=== PATIENT | female | born 1960 | race African-American/Black ===

== ENCOUNTER 2018-01-02 03:59 | Emergency (ER) | payer BC ==
--- NOTE | 2018-01-02 04:51 | PDOC ---
History of Present Illness - General History Source: Patient Exam Limitations: No Limitations - History of Present Illness Initial Comments: 01/02/18 05:28 The patient is a 57 year old female with a significant PMH of asthma, diabetes, and GERD who presents to the emergency department with 2 weeks of productive cough with shortness of breath and 2 days of sore throat and nasal congestion. She also reports right ear pain beginning approximately 1 week ago. She reports going to Urgent Care last week and being given Amoxicillin, which she finished. She reports using her nebulizer to some relief. 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 The patient denies chest pain, headache and dizziness. Denies fever, chills, nausea, vomit, diarrhea and constipation. Denies dysuria, frequency, urgency and hematuria. Allergies: Prednisone Past surgical history: None reported Social history: No reported cigarette, alcohol, or drug use. PCP: Dr. Lala Zhu Cardiology: Dr. Oconnor <Ted Reed - Last Filed: 01/02/18 05:28> <Andree Goodwin - Last Filed: 01/02/18 06:11> - General Chief Complaint: Cold Symptoms Stated Complaint: COUGH Time Seen by Provider: 01/02/18 04:51 Past History <Ted Reed - Last Filed: 01/02/18 05:28> - Past Medical History Asthma: Yes Diabetes: Yes (niddm) GI Disorders: Yes (GERD) - Surgical History Cholecystectomy: No (GALLSTONES REMOVED 1989) - Immunization History Td Vaccination: Yes - Suicide/Smoking/Psychosocial Hx Smoking Status: No Smoking History: Never smoked Years of Tobacco Use: 0 Have you smoked in the past 12 months: No Number of Cigarettes Smoked Daily: 0 Cigars Per Day: 0 Information on smoking cessation initiated: No Hx Alcohol Use: No Drug/Substance Use Hx: No Substance Use Type: None <Andree Goodwin - Last Filed: 01/02/18 06:11> - Past Medical History Allergies/Adverse Reactions: Allergies Allergy/AdvReac Type Severity Reaction Status Date / Time prednisone AdvReac Verified 02/04/17 08:26 Home Medications: Ambulatory Orders Metformin HCl [Glucophage] 1,000 mg PO DAILY 12/05/12 Albuterol Sulfate Inhaler - [Ventolin HFA Inhaler -] 2 inh IH PRN 07/01/13 Fluticasone Propionate [Flovent Hfa] 220 mcg IH PRN 07/01/13 Albuterol 0.083% Nebulizer Nehal [Ventolin 0.083% Nebulizer Soln -] 1 neb NEB Q4H PRN #30 vial 11/22/15 Metformin HCl 500 mg PO HS 02/04/17 Amoxicillin/Potassium Clav [Augmentin 875-125 Tablet] 1 each PO BID #14 tablet 01/02/18 Review of Systems - Review of Systems Able to Perform ROS?: Yes Comments:: 01/02/18 05:28 GENERAL/CONSTITUTIONAL: No fever or chills. No weakness. HEAD, EYES, EARS, NOSE AND THROAT: (+) Nasal congestion. (+) Sore throat. No change in vision. No ear pain or discharge. CARDIOVASCULAR: (+) Shortness of breath. No chest pain. RESPIRATORY: (+) Cough. No wheezing or hemoptysis. GASTROINTESTINAL: No nausea, vomiting, diarrhea or constipation. GENITOURINARY: No dysuria, frequency, or change in urination. MUSCULOSKELETAL: No joint or muscle swelling or pain. No neck or back pain. SKIN: No rash NEUROLOGIC: No headache, vertigo, loss of consciousness, or change in strength/ sensation. ENDOCRINE: No increased thirst. No abnormal weight change. HEMATOLOGIC/LYMPHATIC: No anemia, easy bleeding, or history of blood clots. ALLERGIC/IMMUNOLOGIC: No hives or skin allergy. <Ted Reed - Last Filed: 01/02/18 05:28> *Physical Exam - Vital Signs Last Vital Signs Temp Pulse Resp BP Pulse Ox 99.2 F 85 18 134/66 100 01/02/18 04:12 01/02/18 04:12 01/02/18 04:12 01/02/18 04:12 01/02/18 04:12 <Ted Reed - Last Filed: 01/02/18 05:28> - Vital Signs Last Vital Signs Temp Pulse Resp BP Pulse Ox 99.2 F 85 18 134/66 100 01/02/18 04:12 01/02/18 04:12 01/02/18 04:12 01/02/18 04:12 01/02/18 04:12 <Andree Goodwin - Last Filed: 01/02/18 06:11> Medical Decision Making - Medical Decision Making 01/02/18 06:06 Pt presents to the ED complaining of generalized malaise, nasal congestion, bilateral ear pain and sinus pressure that have been persistent for two weeks. Seen at urgent care, treated one week ago for otitis with amoxicillin without resolution of her symptoms. Flu swab checked to rule out influenza and is negative. CXR negative for PNA. Symptoms are consistent with sinusitis. WIll discharge home with rx for augmentin. <Andree Goodwin - Last Filed: 01/02/18 06:11> *DC/Admit/Observation/Transfer - Attestations Scribe Attestion: 01/02/18 05:28 Documentation prepared by Ted Reed, acting as territory sales manager medical for Andree Goodwin MD. <Ted Reed - Last Filed: 01/02/18 05:28> - Discharge Dispostion Admit: No <Andree Goodwin - Last Filed: 01/02/18 06:11> Diagnosis at time of Disposition: Sinusitis Qualifiers: Sinusitis location: unspecified location Chronicity: acute Recurrence: non- recurrent Qualified Code(s): J01.90 - Acute sinusitis, unspecified - Discharge Dispostion Disposition: HOME Condition at time of disposition: Good - Prescriptions Prescriptions: Amoxicillin/Potassium Clav [Augmentin 875-125 Tablet] 1 each PO BID #14 tablet - Referrals Referrals: Lala Zhu MD [Primary Care Provider] - - Patient Instructions Printed Discharge Instructions: DI for Sinusitis Additional Instructions: return to the ED for severe chest pain or shortness of breath, severe headaches , persistent fever after three days of antibiotics, severe nausea and vomiting, unable to keep fluids down. Follow up with your doctor within three days. - Post Discharge Activity Forms/Work/School Notes: Back to Work
[2018-01-02 04:57] VITALS: BP 134/66; PULSE 85; TEMP 99.2; BMI 36.0
== END 2018-01-02 06:24 | disposition home or self-care (01) ==
LOC: JER 03:59
DX: J01.90 Acute sinusitis, unspecified (principal); J45.909 Unspecified asthma, uncomplicated; E11.9 Type 2 diabetes mellitus without complications; Z79.84 Long term (current) use of oral hypoglycemic drugs; K21.9 Gastro-esophageal reflux disease without esophagitis
CPT/HCPCS: 71046-TC-FY; 87804; 99281-25; 99282-25

== ENCOUNTER 2018-12-12 13:38 | Emergency (ER) | payer OTHER, BC ==
[2018-12-12 13:53] VITALS: BP 136/72; PULSE 64; TEMP 98.4; BMI 35.4
--- NOTE | 2018-12-12 14:30 | PDOC ---
History of Present Illness - General Chief Complaint: Injury Stated Complaint: Injury Time Seen by Provider: 12/12/18 14:30 History Source: Patient Exam Limitations: No Limitations - History of Present Illness Initial Comments: Pt is a 58 yo F, with PMH of asthma, DM, and GERD, who is presenting after a fall to her R hip while she was at work. 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 She did not hear any popping or clicking, but was unable to stand up on her own or ambulate after the fall, so EMS was called. She did not hit her head or have LOC. She does not complain of any midline spinal pain or neck pain. She did not have any numbness/ tingling or loss of stool/urine incontinence. Pt does not take PPI medications for reflux regularly. Pt denies any recent fevers/chills, headache, vision changes, syncope, chest pain, palpitations, SOB, nausea/vomiting, abdominal pain , urinary symptoms, diarrhea/constipation, or leg swelling. Social: Pt denies any cigarette, alcohol, or drug use. Pt denies any recent travel or sick contacts. Surgical: laser gallstone removal, no orthopedic surgeries. Family: no relevant history. 12/12/18 15:25 Past History - Travel Traveled outside of the country in the last 30 days: No Close contact w/someone who was outside of country & ill: No - Past Medical History Allergies/Adverse Reactions: Allergies Allergy/AdvReac Type Severity Reaction Status Date / Time prednisone AdvReac Verified 12/12/18 13:47 Home Medications: Ambulatory Orders metFORMIN HCL [Glucophage] 1,000 mg PO DAILY 12/05/12 Albuterol Sulfate Inhaler - [Ventolin HFA Inhaler -] 2 inh IH PRN 07/01/13 Fluticasone Propionate [Flovent Hfa] 220 mcg IH PRN 07/01/13 Albuterol 0.083% Nebulizer Nehal [Ventolin 0.083% Nebulizer Soln -] 1 neb NEB Q4H PRN #30 vial 11/22/15 metFORMIN HCL [Metformin HCl] 500 mg PO HS 02/04/17 Amoxicillin/Potassium Clav [Augmentin 875-125 Tablet] 1 each PO BID #14 tablet 02/06/18 Asthma: Yes COPD: No Diabetes: Yes (niddm) GI Disorders: Yes (GERD) - Surgical History Cholecystectomy: No (GALLSTONES REMOVED 1989) Orthopedic Surgery: No - Immunization History Td Vaccination: Yes - Suicide/Smoking/Psychosocial Hx Smoking Status: No Smoking History: Unknown if ever smoked Years of Tobacco Use: 0 Have you smoked in the past 12 months: No Number of Cigarettes Smoked Daily: 0 Cigars Per Day: 0 Hx Alcohol Use: No Drug/Substance Use Hx: No Substance Use Type: None Review of Systems - Review of Systems Able to Perform ROS?: Yes Is the patient limited [place]i proficient: No Constitutional: Yes: Weight Stable. No: Chills, Diaphoresis, Fever, Loss of Appetite, Weakness HEENTM: No: Blurred Vision, Double Vision, Nose Congestion, Throat Pain Respiratory: No: Cough, Orthopnea, Shortness of Breath Cardiac (ROS): No: Chest Pain, Edema, Irregular Heart Rate, Lightheadedness, Palpitations, Syncope, Chest Tightness ABD/GI: No: Constipated, Diarrhea, Nausea, Poor Appetite, Poor Fluid Intake, Vomiting, Abdominal cramping : No: Burning, Dysuria, Frequency, Hematuria, Pain, Urgency Musculoskeletal: Yes: See HPI, Joint Pain (pain over R hip and medial R knee; difficulty ambulating and bearing weight after fall.), Joint Swelling (swelling over R knee since fall). No: Back Pain, Muscle Pain, Muscle Weakness, Joint Stiffness Integumentary: No: Bruising, Erythema, Rash Neurological: No: Headache, Numbness, Paresthesia, Tingling, Weakness, Unsteady Gait, Ataxia, Dizziness Psychiatric: No: Sleep Pattern Change, Change in Appetite Endocrine: No: Increased Urine, Change in Weight Hematologic/Lymphatic: No: Anemia, Blood Clots, Easy Bleeding, Easy Bruising All Other Systems: Reviewed and Negative *Physical Exam - Vital Signs Last Vital Signs Temp Pulse Resp BP Pulse Ox 98.4 F 64 18 136/72 99 12/12/18 13:47 12/12/18 13:47 12/12/18 13:47 12/12/18 13:47 12/12/18 13:47 - Physical Exam General Appearance: Yes: Nourished, Appropriately Dressed, Obese. No: Apparent Distress HEENT: positive: EOMI, JANKI, Normal ENT Inspection, Normal Voice, Pharynx Normal , Hearing Grossly Normal. negative: Scleral Icterus (R), Scleral Icterus (L), Pharyngeal Erythema, Tonsillar Exudate, Tonsillar Erythema Neck: positive: Trachea midline, Normal Thyroid, Supple. negative: Tender, Rigid, Decreased range of motion, Lymphadenopathy (R), Lymphadenopathy (L), Rigidity Respiratory/Chest: positive: Lungs Clear, Normal Breath Sounds. negative: Chest Tender, Respiratory Distress, Accessory Muscle Use, Crackles, Wheezing Cardiovascular: positive: Regular Rhythm, Regular Rate, S1, S2. negative: Edema , JVD, Murmur Vascular Pulses: Carotid (R): 4+, Carotid (L): 4+, Dorsalis-Pedis (R): 4+, Doralis-Pedis (L): 4+ Gastrointestinal/Abdominal: positive: Normal Bowel Sounds, Soft, Protuberent. negative: Tender, Flat, Organomegaly, Pulsatile Mass, Distended, Guarding, Rebound Rectal Exam: positive: deferred Lymphatic: negative: Adenopathy, Tenderness Musculoskeletal: positive: Decreased Range of Motion (decreased flexion at R knee and R hip due to swelling and pain. ). negative: Normal Inspection, CVA Tenderness, Muscle Spasm, Vertebral Tenderness Extremity: positive: Normal Capillary Refill, Tender (tender over anterior aspect of R hip and R medial knee. Anterior and posterior drawer test WNL. Tenderness in R knee with varus stress. ), Swelling (R thigh and knee significantly swollen). negative: Normal Inspection, Normal Range of Motion Integumentary: positive: Normal Color, Dry, Warm. negative: Clammy, Diaphoresis , Rash, Ecchymosis Neurologic: positive: ancillary specialist II-XII NML intact, Fully Oriented, Alert, Normal Mood/ Affect, Normal Response, Motor Strength 5/5. negative: EOM Palsy, Facial Droop , Numbness, Sensory Deficit Moderate Sedation - Procedure Monitoring Vital Signs: Procedure Monitoring Vital Signs Temperature 98.4 F 12/12/18 13:47 Pulse Rate 64 12/12/18 13:47 Respiratory Rate 18 12/12/18 13:47 Blood Pressure 136/72 12/12/18 13:47 O2 Sat by Pulse Oximetry (%) 99 12/12/18 13:47 Medical Decision Making - Medical Decision Making Pt was seen at bedside, also will be seen by attending Dr. Jorge. Pt presenting after a fall to her R hip while she was at work. 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 She did not hear any popping or clicking, but was unable to stand up on her own or ambulate after the fall, so EMS was called. She did not hit her head or have LOC. She does not complain of any midline spinal pain or neck pain. She did not have any numbness/tingling or loss of stool/urine incontinence. Pt denies any recent fevers/chills, headache, vision changes, syncope, chest pain, palpitations, SOB , nausea/vomiting, abdominal pain, urinary symptoms, diarrhea/constipation, or leg swelling. PE showed significant edema over the R thigh and R knee. Tenderness to palpation over medial knee, and tenderness with varus stress. Pt able to flex and extend at the hip and knee. Intact anterior and posterior drawer test. No tenderness in posterior aspect of R knee, good distal pulses. Mild tenderness to palpation over the anterior R hip. No midline spinal tenderness, no neck tenderness, or rigidity. Pt able to bear weight and ambulate a few short steps, favoring L leg. Considering MSK contusions/sprains vs acute hip fracture vs patellar/tibial plateau fracture vs meniscal/ligamentous injury. Ordered work-up including R hip/pelvis and R knee/patellar (sunrise view) x- rays. Provided 650 mg PO tylenol for improvement of pain. Will continue to reassess pt and monitor for symptomatic improvement. 12/12/18 15:08 X-ray showed no acute fracture. Due to pain in the medial aspect of the knee, will place pt in knee immobilizer/ crutches and give follow-up for orthopedics. Advised pt to continue OTC pain control (tylenol, ibuprofen) and supportive measures at home. Pt advised to follow-up as well with PCP. Strict return precautions provided with pt understanding. 12/12/18 15:37 *DC/Admit/Observation/Transfer Diagnosis at time of Disposition: Right knee sprain Qualifiers: Encounter type: initial encounter Involved ligament of knee: unspecified ligament Qualified Code(s): S83.91XA - Sprain of unspecified site of right knee , initial encounter Sprain of right hip Qualifiers: Encounter type: initial encounter Qualified Code(s): S73.101A - Unspecified sprain of right hip, initial encounter Fall Qualifiers: Encounter type: initial encounter Qualified Code(s): W19.XXXA - Unspecified fall, initial encounter - Discharge Dispostion Disposition: HOME Condition at time of disposition: Good Decision to Admit order: No - Referrals Referrals: Lala Zhu MD [Primary Care Provider] - Anil Werner MD [Staff Physician] - - Patient Instructions Printed Discharge Instructions: DI for Knee Sprain Additional Instructions: You were seen in the ER today for a fall to your right hip and knee. The results of your labs and imaging today were normal. Please follow-up with your primary care doctor and orthopedics (Dr. Werner/Donnie) within 1-2 days to discuss your visit and make sure your symptoms have improved. Please return to the ER if you have any worsening pain, development of fevers or chills, loss of consciousness, inability to tolerate food or fluids, continued inability to bear weight, numbness or tingling in your extremities, or any other concerns. - Post Discharge Activity
[2018-12-12] MEDS ORDERED: ACETAMINOPHEN 325 MG TABLET (FP) PO ONE (14:50)
[2018-12-12] MEDS ORDERED: ACETAMINOPHEN 325 MG TABLET (FP) ONE (14:52)
--- NOTE | 2018-12-12 15:21 | PDOC ---
Attending Attestation - Resident Resident Name: Bailey Hurtado - ED Attending Attestation I have performed the following: I have examined & evaluated the patient, The case was reviewed & discussed with the resident, I agree w/resident's findings & plan, Exceptions are as noted - HPI HPI: 12/12/18 15:20 The patient is a 58 year old female with a significant PMH of asthma, diabetes, and GERD who presents to the emergency department s/p fall today. 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 Patient denies any head trauma. Denies LOC. Now complains of pain in her R hip and knee. Denies AVILES/neck pain. The patient denies chest pain, shortness of breath, headache and dizziness. Denies fever, chills, nausea, vomit, diarrhea and constipation. Denies dysuria, frequency, urgency and hematuria. Allergies: NKA Past surgical history: None reported. Social history: No reported alcohol, drug or cigarette use. PCP: Dr. Lala Zhu - Physicial Exam PE: 12/12/18 15:20 "GENERAL: Awake, alert, and fully oriented, in no acute distress. HEAD: No signs of trauma EYES: PERRLA, EOMI, sclera anicteric, conjunctiva clear ENT: Auricles normal inspection, hearing grossly normal, nares patent, oropharynx clear without exudates. Moist mucosa NECK: Nontender, no stepoffs, Normal ROM, supple, no lymphadenopathy, JVD, or masses LUNGS: Breath sounds equal, clear to auscultation bilaterally. No wheezes, and no crackles HEART: Regular rate and rhythm, normal S1 and S2, no murmurs, rubs or gallops ABDOMEN: Soft, nontender, normoactive bowel sounds. No guarding, no rebound. No masses EXTREMITIES: + R hip tenderness and R medial knee tenderness with effusion, ankle wnl, LLE wnl BACK: no midline tenderness, no stepoffs NEUROLOGICAL: Cranial nerves II through XII intact. 5/5 strength and sensation in all extremities, Normal speech, normal gait, normal cerebellar function SKIN: Warm, Dry, normal turgor, no rashes or lesions noted. - Medical Decision Making 12/12/18 15:21 58 F with R hip and knee pain s/p mechanical fall. Pt able to bear weight and ambulate in ED but has tenderness at medial jointline of R knee with joint effusion. WIll obtain XR to r/o fx but more likely ligamentous or meniscal injury. - XR R hip, R knee - Pain control 12/12/18 15:38 XRs negative on my read Pt placed in knee immobilizer, given crutches Will f/u with ortho as outpt Pt is well appearing, with normal vitals. Clinically stable for DC at this time. I discussed the physical exam findings, ancillary test results and final diagnoses with the patient. I answered all of the patient's questions. The patient was satisfied with the care received and felt comfortable with the discharge plan and treatment plan. The patient agrees to follow up with the primary care physician within 24-72 hours.
== END 2018-12-12 15:54 | disposition home or self-care (01) ==
LOC: JER 13:38
DX: S73.101A Unspecified sprain of right hip, initial encounter (principal); S83.91XA Sprain of unspecified site of right knee, initial encounter; W01.0XXA Fall on same level from slipping, tripping and stumbling without subsequent striking against object, initial encounter; Y93.89 Activity, other specified; Y92.511 Restaurant or cafe as the place of occurrence of the external cause; Y99.0 Civilian activity done for income or pay; K21.9 Gastro-esophageal reflux disease without esophagitis; J45.909 Unspecified asthma, uncomplicated; E11.9 Type 2 diabetes mellitus without complications
CPT/HCPCS: 73523-TC-FY; 73562-TC-RT-FY; 99281-25

== ENCOUNTER 2019-01-05 16:50 | Emergency (ER) | payer OTHER ==
[2019-01-05 17:16] VITALS: BP 122/60; PULSE 80; TEMP 98.8; BMI 37.2
--- NOTE | 2019-01-05 18:29 | PDOC ---
History of Present Illness - General Chief Complaint: Respiratory Stated Complaint: SENT BY PCP - History of Present Illness Initial Comments: The pt is a 58F w/ a PMH of asthma, T2DM, and GERD who presents for evaluation of 1wk midsternal chest pressure, worse w/ laying down, and not alleviated by anything she can identify. She reports associated worsening exertional dyspnea. She She also describes 1 wk of separtate L-sided sharp chest pain w/ radiation to L arm that is non-exertional and intermittent. Additionally, reports a dry cough for 1 day not helped by ventolin. She was seen at an urgent care prior to being seen here. She had an ECG done there which was significant for a RBBB and was sent here for further evaluation. There she was given 325mg ASA. Of note, she recently was started on Losartan Denies fevers/chills, AVILES, Vision changes, abdominal pain, N/V/C/D. Denies hx of PA or stroke or stent PCP: Dr. Lala Lobo 01/05/19 18:31 Past History - Past Medical History Allergies/Adverse Reactions: Allergies Allergy/AdvReac Type Severity Reaction Status Date / Time prednisone AdvReac Verified 01/05/19 17:16 Home Medications: Ambulatory Orders metFORMIN HCL [Glucophage] 1,000 mg PO DAILY 12/05/12 Albuterol Sulfate Inhaler - [Ventolin HFA Inhaler -] 2 inh IH PRN 07/01/13 Fluticasone Propionate [Flovent Hfa] 220 mcg IH PRN 07/01/13 Albuterol 0.083% Nebulizer Nehal [Ventolin 0.083% Nebulizer Soln -] 1 neb NEB Q4H PRN #30 vial 11/22/15 metFORMIN HCL [Metformin HCl] 500 mg PO HS 02/04/17 Amoxicillin/Potassium Clav [Augmentin 875-125 Tablet] 1 each PO BID #14 tablet 01/02/18 Asthma: Yes COPD: No Diabetes: Yes (niddm) GI Disorders: Yes (GERD) - Surgical History Cholecystectomy: No (GALLSTONES REMOVED 1989) Orthopedic Surgery: No - Immunization History Td Vaccination: Yes - Suicide/Smoking/Psychosocial Hx Smoking Status: No Smoking History: Never smoked Years of Tobacco Use: 0 Have you smoked in the past 12 months: No Number of Cigarettes Smoked Daily: 0 Cigars Per Day: 0 Hx Alcohol Use: No Drug/Substance Use Hx: No Substance Use Type: None Review of Systems - Review of Systems Able to Perform ROS?: Yes Comments:: GENERAL/CONSTITUTIONAL: No fever or chills. No weakness HEAD, EYES, EARS, NOSE AND THROAT: No change in vision. No ear pain or discharge. No sore throat CARDIOVASCULAR: per HPI RESPIRATORY: Denies hemoptysis GASTROINTESTINAL: No nausea, vomiting, diarrhea or constipation GENITOURINARY: No dysuria, frequency, or change in urination MUSCULOSKELETAL: No joint or muscle swelling or pain. No neck or back pain SKIN: No rash NEUROLOGIC: No headache, vertigo, loss of consciousness, or change in strength/ sensation ENDOCRINE: No increased thirst. No abnormal weight change HEMATOLOGIC/LYMPHATIC: No anemia, easy bleeding, or history of blood clots ALLERGIC/IMMUNOLOGIC: No hives or skin allergy 01/05/19 18:29 Is the patient limited Albanian proficient: No *Physical Exam - Vital Signs Last Vital Signs Temp Pulse Resp BP Pulse Ox 98.8 F 80 18 122/60 97 01/05/19 17:11 01/05/19 17:11 01/05/19 17:11 01/05/19 17:11 01/05/19 17:11 - Physical Exam Comments: GENERAL: Awake, alert, and fully oriented, in no acute distress HEAD: No signs of trauma, normocephalic, atraumatic EYES: PERRLA, EOMI, sclera anicteric, conjunctiva clear ENT: Hearing grossly normal, nares patent, oropharynx clear without exudates. Moist mucosa LUNGS: No distress, speaks full sentences, mild expiratory wheezes b/l diffusely HEART: Regular rate and rhythm, normal S1 and S2, no murmurs appreciated, peripheral pulses normal and equal bilaterally ABDOMEN: Soft, nontender, normoactive bowel sounds. No guarding, no rebound EXTREMITIES : Normal inspection, Normal range of motion, no edema. No clubbing or cyanosis NEUROLOGICAL: Cranial nerves II through XII grossly intact. Normal speech, normal gait, no focal sensorimotor deficits SKIN: Warm, Dry 01/05/19 18:29 Moderate Sedation - Procedure Monitoring Vital Signs: Procedure Monitoring Vital Signs Temperature 98.8 F 01/05/19 17:11 Pulse Rate 80 01/05/19 17:11 Respiratory Rate 18 01/05/19 17:11 Blood Pressure 122/60 01/05/19 17:11 O2 Sat by Pulse Oximetry (%) 97 01/05/19 17:11 Heart Score/ECG Review - History History: Slightly suspicious - Electrocardiogram EKG: Non specific repolarization disturbance - Age Age: 45-65 - Risk Factors Risk Factors Heart Score: Yes Hx Hypertension, Yes Hx Diabetes Based on the list above the patient has:: 1-2 risk factors - Troponin Troponin: </= normal limit - Score Heart Score - Total: 3 ED Treatment Course - LABORATORY CBC & Chemistry Diagram: 01/05/19 18:50 01/05/19 18:50 Medical Decision Making - Medical Decision Making The pt is a 58F w/ a history of asthma, HTN, and GERD who presents for evaluation of 1wk of chest pain and a few days of non-productive cough not alleviated by her inhaler Ddx: asthma exacerbation, PNA, viral syndrome, consider ACS (HEART score 3 given co-morbidities) ED Course CMP, CBC, Cardiac enzymes ECG CXR Nebs x1 01/05/19 18:47 ECG w/ NSR w/ 1 PVC, HR 78, QTc 437, RBBB No leukocytosis No anemia CXR w/o evidence of PNA, PNX, or effusion 01/05/19 19:06 Trop I neg Lytes wnl No CARY LFTs wnl 01/05/19 19:30 Patient now describes chest sensation as 'fluttering' Patient w/ improved wheezing s/p nebs Patient reports she feels moderately improved Plan for D/C w/ PCP f/u Discharge instructions and return precautions given Patient in agreement and verbalized understanding Dispo: home 01/05/19 19:44 *DC/Admit/Observation/Transfer Diagnosis at time of Disposition: Cough Chest pain Qualifiers: Chest pain type: unspecified Qualified Code(s): R07.9 - Chest pain, unspecified - Discharge Dispostion Disposition: HOME Condition at time of disposition: Good Decision to Admit order: No - Referrals - Patient Instructions Printed Discharge Instructions: DI for Viral Syndrome Additional Instructions: You were seen in the Emergency Department today for cough and chest congestion. Review the handout provided at discharge. Follow up with your primary care provider within the next 3-5 days. Return to the Emergency Department if you develop fevers/chills, worsening or different chest discomfort, trouble breathing, or any new/concerning symptoms. For you symptoms, you may take guaifenesin and dextromethorphan (commonly found in Mucinex) - Post Discharge Activity
[2019-01-05] MEDS ORDERED: ALBUTEROL SO4 2.5/IPRATROPIUM 0.5 INH SOL 3 ML VIAL.NEB. NEB ONE ×2 (18:50→19:06)
[2019-01-05 18:57] LABS: HEMATOCRIT 38.8 % (32.4-45.2); HEMOGLOBIN 13.1 GM/dL (10.7-15.3); MCH 27.8 pg (25.7-33.7); MCHC 33.7 g/dl (32.0-36.0); MEAN CELL VOLUME 82.3 fl (80-96); MEAN PLT VOLUME 8.5 fl (7.5-11.1); PLATELET COUNT 241 K/MM3 (134-434); RBC 4.71 M/mm3 (3.60-5.2); RDW 16.8 % (11.6-15.6)
--- NOTE | 2019-01-05 19:25 | PDOC ---
Attending Attestation - Resident Resident Name: Andry Sibley - ED Attending Attestation I have performed the following: I have examined & evaluated the patient, The case was reviewed & discussed with the resident, I agree w/resident's findings & plan, Exceptions are as noted - HPI HPI: 01/05/19 20:03 The patient is a 58 year old female, with a significant PMH of asthma, NIDDM, GERD, HTN, and HLN who presents to the emergency department with a cough productive of clear sputum for 1 day after visiting urgent care today. The patient reports an intermittent chest fluttering for 1 week, that is worse when supine, with each episode lasting a couple seconds, improves when she tries to clera her throat. The patient reports an associated sore throat. 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 The patient denies any chest pain and chest pressure, n/v, diaphoresis, f/c, leg slweling, hemoptysis. The patient denies headache and dizziness. Denies fever, chills, nausea, vomit, diarrhea and constipation. Denies dysuria, frequency, urgency and hematuria. Allergies: prednisone PCP: Dr. 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 HEAD: Normocephalic, atraumatic. EYES: extraocular movements intact, sclera anicteric, conjunctiva clear. ENT: Normal voice, Moist mucous membranes. NECK: Normal range of motion, supple LUNGS: Breath sounds equal, clear to auscultation bilaterally. No wheezes, no rhonchi, no rales. HEART: Regular rate and rhythm, normal S1 and S2 without murmur, rub or gallop. ABDOMEN: Soft, nontender, No guarding, no rebound. . No CVA tenderness EXTREMITIES: Normal range of motion, no edema. . NEUROLOGICAL: No facial assymetry, Normal speech, PSYCH: Normal mood, normal affect. SKIN: Warm, Dry, normal turgor, - Medical Decision Making 01/05/19 19:13 58y F hx of NIDDM, htn, hl, sent to the ED by Urgent care for abnormal EKG, pt endorses midsternal chest 'fluttering' that lasts for several seconds at a time before resolving, it also seems to resolve when she tries to clear her throat. The pt endorses a sore throat miles tstarted today, a cough intermittently productive of whitish sputum since eysterday. denies any chest pain, chest pressure, fever/chills, leg swelling, hemoptysis, back pain, abd pain, diaphoresis, nasal congestion. pt notes she feels mild sob when she is ambulating. she has been using her ventolin with mild releive. 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
[2019-01-05 19:27] LABS: ALBUMIN 3.8 g/dl (3.4-5.0); ALK PHOS 87 U/L (45-117); ANION GAP 7 MMOL/L (8-16); BILIRUBIN,TOTAL 0.4 mg/dL (0.2-1); BLOOD UREA NITROGEN 8 mg/dL (7-18); CALCIUM 8.3 mg/dL (8.5-10.1); CHLORIDE 108 mmol/L (98-107); CO2 26 mmol/L (21-32); CREATININE 0.6 mg/dL (0.55-1.3); GLUCOSE,RANDOM 111 mg/dL (74-106); POTASSIUM 3.7 mmol/L (3.5-5.1); SGOT/AST 15 U/L (15-37); SGPT/ALT 21 U/L (13-61); SODIUM 140 mmol/L (136-145); TOT PROT 6.8 g/dl (6.4-8.2)
--- NOTE | 2019-01-06 13:00 | EKG ---
Test Reason : Blood Pressure : / mmHG Vent. Rate : 078 BPM Atrial Rate : 078 BPM P-R Int : 150 ms QRS Dur : 130 ms QT Int : 384 ms P-R-T Axes : 071 -30 029 degrees QTc Int : 437 ms SINUS RHYTHM WITH OCCASIONAL PREMATURE VENTRICULAR COMPLEXES LEFT AXIS DEVIATION RIGHT BUNDLE BRANCH BLOCK ABNORMAL ECG WHEN COMPARED WITH ECG OF 26-SEP-2016 17:28, PREMATURE VENTRICULAR COMPLEXES ARE NOW PRESENT Confirmed by John Paul Leos MD ([id number]) on 01/06/2019 1:00:00 PM Referred By: Confirmed By:John Paul Leos MD
== END 2019-01-05 20:18 | disposition home or self-care (01) ==
LOC: JER 16:50
PROC: 3E0F7GC Introduction of Other Therapeutic Substance into Respiratory Tract, Via Natural or Artificial Opening (ICD-10-PCS; principal; 2019-01-05)
DX: R07.9 Chest pain, unspecified (principal); J45.909 Unspecified asthma, uncomplicated; I10 Essential (primary) hypertension; K21.9 Gastro-esophageal reflux disease without esophagitis
CPT/HCPCS: 36415; 71045-TC-FY; 80053; 82550; 84484; 85027; 93005; 93010; 99282-25

== ENCOUNTER 2019-01-20 08:33 | Emergency (ER) | payer BC, OTHER ==
[2019-01-20 08:41] VITALS: BP 115/59; PULSE 68; TEMP 98; BMI 37.2
--- NOTE | 2019-01-20 09:24 | PDOC ---
History of Present Illness - General Chief Complaint: Respiratory Stated Complaint: CONGESTION / COUGHING Time Seen by Provider: 01/20/19 08:48 History Source: Patient Exam Limitations: Clinical Condition - History of Present Illness Initial Comments: 01/20/19 09:28 Patient with history of diabetes present with complaint of over 2 weeks history of cough and burning sensation with irregular heartbeat which comes on at night where she is sleeping. Patient reports she was seen in the ED here 2 weeks ago for same symptoms and all workup was negative including EKG and cardiac labs. Patient reports she was seen by PCP few days ago for symptoms and had Holter monitor done but hasn't received the results yet by patient's symptoms could be caused by acid reflex as she has been having a lot of burping and burning the chest especially at night why she sleeping. Patient denies any chest pain now, shortness of breath, dizziness, sweats, nausea or vomiting. Patient denies any other symptoms Timing/Duration: other (2 weeks) Past History - Past Medical History Allergies/Adverse Reactions: Allergies Allergy/AdvReac Type Severity Reaction Status Date / Time prednisone AdvReac Verified 01/20/19 08:40 Home Medications: Ambulatory Orders metFORMIN HCL [Glucophage] 1,000 mg PO DAILY 12/05/12 Albuterol Sulfate Inhaler - [Ventolin HFA Inhaler -] 2 inh IH PRN 07/01/13 Fluticasone Propionate [Flovent Hfa] 220 mcg IH PRN 07/01/13 Albuterol 0.083% Nebulizer Nehal [Ventolin 0.083% Nebulizer Soln -] 1 neb NEB Q4H PRN #30 vial 11/22/15 metFORMIN HCL [Metformin HCl] 500 mg PO HS 02/04/17 Amoxicillin/Potassium Clav [Augmentin 875-125 Tablet] 1 each PO BID #14 tablet 01/02/18 Benzonatate [Tessalon Pearls -] 100 mg PO TID PRN #21 capsule 01/20/19 Pantoprazole Sodium [Protonix] 40 mg PO DAILY #30 tablet. 01/20/19 Asthma: Yes COPD: No Diabetes: Yes GI Disorders: Yes (GERD) HTN: Yes - Surgical History Cholecystectomy: No (GALLSTONES REMOVED 1989) Orthopedic Surgery: No - Immunization History Td Vaccination: Yes - Suicide/Smoking/Psychosocial Hx Smoking Status: No Smoking History: Never smoked Years of Tobacco Use: 0 Have you smoked in the past 12 months: No Number of Cigarettes Smoked Daily: 0 Cigars Per Day: 0 Hx Alcohol Use: No Drug/Substance Use Hx: No Substance Use Type: None Review of Systems - Review of Systems Able to Perform ROS?: Yes Is the patient limited Latvian proficient: No Constitutional: No: Symptoms Reported, See HPI, Chills, Diaphoresis, Fever, Loss of Appetite, Malaise, Night Sweats, Weakness, Weight Stable, Unintentional Wgt. Loss, Unexplained wgt Loss, Other HEENTM: No: Symptoms Reported, See HPI, Eye Pain, Blurred Vision, Tearing, Recent change in vision, Double Vision, Cataracts, Ear Pain, Ocular Prothesis, Ear Discharge, Nose Pain, Nose Congestion, Tinnitus, Nose Bleeding, Hearing Loss , Throat Pain, Throat Swelling, Mouth Pain, Dental Problems, Difficulty Swallowing, Mouth Swelling, Other Respiratory: Yes: Symptoms reported, See HPI, Cough. No: Orthopnea, Shortness of Breath, SOB with Exertion, SOB at Rest, Stridor, Wheezing, Productive cough, Hemoptysis, Other Cardiac (ROS): Yes: Symptoms Reported, See HPI, Irregular Heart Rate. No: Chest Pain, Edema, Lightheadedness, Palpitations, Syncope, Chest Tightness, Other ABD/GI: No: Symptoms Reported, See HPI, Abdominal Distended, Abd. Pain w/ defecation, Blood Streaked Bowels, Constipated, Diarrhea, Difficulty Swallowing , Nausea, Poor Appetite, Poor Fluid Intake, Rectal Bleeding, Vomiting, Indigestion, Abdominal cramping, Tarry Stools, Other Neurological: No: Headache, Numbness, Paresthesia, Tingling, Dizziness All Other Systems: Reviewed and Negative *Physical Exam - Vital Signs Last Vital Signs Temp Pulse Resp BP Pulse Ox 98.0 F 68 18 115/59 L 98 01/20/19 08:37 01/20/19 08:37 01/20/19 08:37 01/20/19 08:37 01/20/19 08:37 - Physical Exam Comments: 01/20/19 09:30 GENERAL: [The patient is awake, alert, and fully oriented, in no acute distress. ] HEAD: [Normal with no signs of trauma.] EYES: [Pupils equal, round and reactive to light, extraocular movements intact, sclera anicteric, conjunctiva clear.] ENT: [Ears normal, nares patent, oropharynx clear without exudates. Moist mucous membranes.] NECK: [Normal range of motion, supple without lymphadenopathy, JVD, or masses.] LUNGS: [Breath sounds equal, clear to auscultation bilaterally. No wheezes, and no crackles.] HEART: [Regular rate and rhythm, normal S1 and S2 without murmur, rub or gallop. ] ABDOMEN: [Soft, nontender, normoactive bowel sounds. No guarding, no rebound. No masses.] EXTREMITIES: [Normal range of motion, no edema. No clubbing or cyanosis. No cords, erythema, or tenderness.] NEUROLOGICAL: [Cranial nerves II through XII grossly intact. Normal speech, normal gait.] PSYCH: [Normal mood, normal affect.] SKIN: [Warm, Dry, normal turgor, no rashes or lesions noted.] General Appearance: Yes: Nourished, Appropriately Dressed. No: Apparent Distress Moderate Sedation - Procedure Monitoring Vital Signs: Procedure Monitoring Vital Signs Temperature 98.0 F 01/20/19 08:37 Pulse Rate 68 01/20/19 08:37 Respiratory Rate 18 01/20/19 08:37 Blood Pressure 115/59 L 01/20/19 08:37 O2 Sat by Pulse Oximetry (%) 98 01/20/19 08:37 Medical Decision Making - Medical Decision Making 01/20/19 09:31 Patient present with complaint of 2 weeks history of cough, burping and burning sensation chest. Patient previously was seen for symptoms and all workup was negative. Patient be follow-up with primary care and had Holter monitor done in the waiting results. Clinical exam unremarkable with normal cardio and lung exam. Symptoms likely GERD causing cough. Patient is stable for discharge on Tessalon Perles for cough and Protonix for GERD with PCP and cardiology follow-up. Referral given for cardiology follow-up. *DC/Admit/Observation/Transfer Diagnosis at time of Disposition: Atypical chest pain, Cough GERD (gastroesophageal reflux disease) Qualifiers: Esophagitis presence: without esophagitis Qualified Code(s): K21.9 - Gastro- esophageal reflux disease without esophagitis - Discharge Dispostion Disposition: HOME Condition at time of disposition: Stable Decision to Admit order: No - Prescriptions Prescriptions: Benzonatate [Tessalon Pearls -] 100 mg PO TID PRN #21 capsule PRN Reason: Cough Pantoprazole Sodium [Protonix] 40 mg PO DAILY #30 tablet.dr - Referrals Referrals: Lala Zhu MD [Primary Care Provider] - Fadi Pulido MD [Staff Physician] - - Patient Instructions Printed Discharge Instructions: DI for Gastroesophageal Reflux Disease (GERD) Additional Instructions: Take medications as prescribed for cough and heartburn. Follow-up referred cardiology Dr. Pulido for irregular heartbeat. - Post Discharge Activity
== END 2019-01-20 09:27 | disposition home or self-care (01) ==
LOC: JERFT 08:33
DX: K21.9 Gastro-esophageal reflux disease without esophagitis (principal); R07.9 Chest pain, unspecified; I10 Essential (primary) hypertension; E11.9 Type 2 diabetes mellitus without complications; Z79.84 Long term (current) use of oral hypoglycemic drugs; J45.909 Unspecified asthma, uncomplicated
CPT/HCPCS: 99281-25

== ENCOUNTER 2019-12-20 18:13 | Emergency (ER) | payer OTHER, BC ==
[2019-12-20 18:48] VITALS: BP 141/70; PULSE 83; TEMP 98.3; BMI 41.0
[2019-12-20] MEDS ORDERED: CYCLOBENZAPRINE HCL 10 MG TABLET (FP) PO ONE (18:50)
[2019-12-20] MEDS ORDERED: KETOROLAC TROMETHAMINE 60 MG/2 ML VIAL IM ONE (18:50)
--- NOTE | 2019-12-20 18:51 | PDOC ---
Rapid Medical Evaluation Chief Complaint: Headache Medical Evaluation: Allergies Allergy/AdvReac Type Severity Reaction Status Date / Time prednisone AdvReac Verified 12/20/19 18:44 Vital Signs Temp Pulse Resp BP Pulse Ox 98.3 F 83 16 141/70 99 12/20/19 18:45 12/20/19 18:45 12/20/19 18:45 12/20/19 18:45 12/20/19 18:45 12/20/19 18:51 Pt c/o: hit by big ball 1 week ago and jerked herself when she was hit, still with pain to left side of head with ear and decreased rom of neck with neck pain , no nausea or visual changes Pt on brief exam: vss, perrl, left trap strain, cervical tenderness at c5 Pt ordered for: cervical xray, flexeril and toradol pt to proceed to the ED Discharge Disposition - Diagnosis Trapezius strain - Referrals - Patient Instructions - Post Discharge Activity
[2019-12-20] MEDS ORDERED: KETOROLAC TROMETHAMINE 60 MG/2 ML VIAL ONE (21:18)
[2019-12-20] MEDS ORDERED: CYCLOBENZAPRINE HCL 10 MG TABLET (FP) ONE (21:18)
--- NOTE | 2019-12-20 22:06 | PDOC ---
History of Present Illness - General Chief Complaint: Headache Stated Complaint: HEADACHE Time Seen by Provider: 12/20/19 18:51 History Source: Patient Exam Limitations: No Limitations - History of Present Illness Initial Comments: 12/20/19 22:02 HISTORY OF PRESENT ILLNESS: 59-year-old woman who presents emergency department for evaluation of left neck and shoulder pain status post being struck in the side of the head with a playground ball on 12/09. Patient has been seen and evaluated by urgent care multiple times as this is an ongoing workers comp issue. Patient believes she was getting substandard care at the previous provider and wanted reevaluation of her neck pain. She denies any numbness or tingling to her upper extremities, weakness, decreased range of motion. No recent travel or sick contacts. PAST MEDICAL HISTORY: Denies past medical history SURGICAL HISTORY: Denies ALLERGIES: Prednisone REVIEW OF SYSTEMS General/Constitutional: Denies fever or chills. Denies weakness, weight change. HEENT: Denies change in vision. Denies ear pain or discharge. Denies sore throat. Cardiovascular: Denies chest pain or shortness of breath. Respiratory: Denies cough, wheezing, or hemoptysis. Gastrointestinal: Denies nausea, vomiting, diarrhea or constipation. Denies rectal bleeding. Genitourinary: Denies dysuria, frequency, or change in urination. Musculoskeletal: See HPI Skin and breasts: Denies rash or easy bruising. Neurologic: Denies headache, vertigo, loss of consciousness, or loss of sensation. Psychiatric: Denies depression or anxiety. Endocrine: Denies increased thirst. Denies abnormal weight change. Hematologic/Lymphatic: Denies anemia, easy bleeding, or history of blood clots. Allergic/Immunologic: Denies hives or skin allergy. Denies latex allergy. PHYSICAL EXAM General Appearance: Well-appearing, appropriately dressed. No apparent distress , no intoxication. HEENT: EOMI, PERRLA, normal ENT inspection, normal voice, TMs normal, pharynx normal. No conjunctival pallor. No photophobia, scleral icterus. Neck: Supple. Trachea midline. No tenderness, rigidity, carotid bruit, stridor , lymphadenopathy, or thyromegaly. No midline tenderness. Full range of motion of the cervical spine including flexion, extension and rotation. No lateral tenderness present. Respiratory/Chest: Lungs CTAB. No shortness of breath, chest tenderness, respiratory distress, accessory muscle use. No crackles, rales, rhonchi, stridor , wheezing, dullness Cardiovascular: RRR. S1, S2. No JVD, murmur, bradycardia, tachycardia. Vascular Pulses: Dorsalis-Pedis (R): 2+, Dorsalis-Pedis (L): 2+ Musculoskeletal/Extremities: Normal inspection. FROM of all extremities, normal capillary refill. Pelvis Stable. No CVA tenderness. No tenderness to extremities, pedal edema, swelling, erythema or deformity. 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 Fully oriented, alert. Appropriate mood/affect. Motor strength 5/5. No appreciable EOM palsy, facial droop or sensory deficit. Past History - Past Medical History Allergies/Adverse Reactions: Allergies Allergy/AdvReac Type Severity Reaction Status Date / Time prednisone AdvReac Verified 12/20/19 18:44 Home Medications: Ambulatory Orders metFORMIN HCL [Glucophage] 1,000 mg PO DAILY 12/05/12 Albuterol Sulfate Inhaler - [Ventolin HFA Inhaler -] 2 inh IH PRN 07/01/13 Fluticasone Propionate [Flovent Hfa] 220 mcg IH PRN 07/01/13 Albuterol 0.083% Nebulizer Nehal [Ventolin 0.083% Nebulizer Soln -] 1 neb NEB Q4H PRN #30 vial 11/22/15 metFORMIN HCL [Metformin HCl] 500 mg PO HS 02/04/17 Amoxicillin/Potassium Clav [Augmentin 875-125 Tablet] 1 each PO BID #14 tablet 01/02/18 Benzonatate [Tessalon Pearls -] 100 mg PO TID PRN #21 capsule 01/20/19 Pantoprazole Sodium [Protonix] 40 mg PO DAILY #30 tablet. 01/20/19 Methocarbamol [Robaxin -] 1,000 mg PO TID PRN #42 tablet 12/20/19 Asthma: Yes COPD: No Diabetes: Yes GI Disorders: Yes (GERD) HTN: Yes - Surgical History Cholecystectomy: No (GALLSTONES REMOVED 1989) Orthopedic Surgery: No - Immunization History Td Vaccination: Yes - Psycho Social/Smoking Cessation Hx Smoking Status: No Smoking History: Never smoked Years of Tobacco Use: 0 Have you smoked in the past 12 months: No Number of Cigarettes Smoked Daily: 0 Cigars Per Day: 0 Hx Alcohol Use: No Drug/Substance Use Hx: No Substance Use Type: None *Physical Exam - Vital Signs Last Vital Signs Temp Pulse Resp BP Pulse Ox 98.3 F 83 16 141/70 99 12/20/19 18:45 12/20/19 18:45 12/20/19 18:45 12/20/19 18:45 12/20/19 18:45 ED Treatment Course - Medications Given in the ED: ED Medications Discontinued Medications Generic Name Dose Route Start Last Admin Trade Name Freq PRN Reason Stop Dose Admin Cyclobenzaprine HCl 5 mg 12/20/19 18:50 12/20/19 21:27 Flexeril - PO 12/20/19 18:51 5 mg ONCE ONE Administration Ketorolac Tromethamine 60 mg 12/20/19 18:50 12/20/19 21:27 Toradol Injection - IM 12/20/19 18:51 60 mg ONCE ONE Administration Medical Decision Making - Medical Decision Making 12/20/19 22:01 A/P: 59-year-old woman for reevaluation of upper back pain after being struck in the head with a playground ball on 12/09 X-rays of the cervical spine is read by me: No malalignment is present. No acute fractures are noted. Patient reports improvement in her pain after receiving Flexeril from [facility]. Discharge home with prescription for Robaxin and instructions to follow-up with her Worker's Comp. physician for continued evaluation and treatment. I discussed the physical exam findings, ancillary test results and final diagnoses with the patient. I answered all of the patient's questions. The patient was satisfied with the care received and felt comfortable with the discharge plan and treatment plan. The patient will call their primary care physician within 24 hours to arrange follow-up and will return to the Emergency Department with any new, persistent or worsening symptoms. Discharge - Discharge Information Problems reviewed: Yes Clinical Impression/Diagnosis: Trapezius strain Qualifiers: Encounter type: initial encounter Laterality: left Qualified Code(s): S46.812A - Strain of other muscles, fascia and tendons at shoulder and upper arm level, left arm, initial encounter Condition: Stable Disposition: HOME - Admission No - Additional Discharge Information Prescriptions: Methocarbamol [Robaxin -] 1,000 mg PO TID PRN #42 tablet PRN Reason: Back Pain - Follow up/Referral Referrals: Lala Zhu MD [Primary Care Provider] - - Patient Discharge Instructions Additional Instructions: Rest, no heavy lifting or exercise until pain is resolved Hot soaks to neck and low back as often as possible/hot showers or Jacuzzis No massage or therapy until spasm is gone Continue naproxen 2-220 mg tablets every 12 hours for the next 3 days then as needed for pain and swelling Robaxin 1000mg every 8 hours as needed for spasm If not significant improvement within 24 hours with medication and rest regime, followup with private physician for change in medications and /or therapy. - Post Discharge Activity
== END 2019-12-20 22:04 | disposition home or self-care (01) ==
LOC: JERFT 18:13
PROC: 3E0233Z Introduction of Anti-inflammatory into Muscle, Percutaneous Approach (ICD-10-PCS; principal; 2019-12-20)
DX: S46.812A Strain of other muscles, fascia and tendons at shoulder and upper arm level, left arm, initial encounter (principal); W21.09XA Struck by other hit or thrown ball, initial encounter; Y93.89 Activity, other specified; Y92.838 Other recreation area as the place of occurrence of the external cause; Y92.218 Other school as the place of occurrence of the external cause; Y99.0 Civilian activity done for income or pay; Z88.8 Allergy status to other drugs, medicaments and biological substances; I10 Essential (primary) hypertension; E11.9 Type 2 diabetes mellitus without complications; Z79.84 Long term (current) use of oral hypoglycemic drugs; K21.9 Gastro-esophageal reflux disease without esophagitis; J45.909 Unspecified asthma, uncomplicated
CPT/HCPCS: 72050-TC-FY; 99281-25